=== PATIENT | male | born 1985 | race Caucasian/White ===

== ENCOUNTER 2023-03-21 09:01 | Emergency (ER) | payer OTHER, SELFPAY ==
[2023-03-21 09:10] VITALS: BP 128/88; PULSE 102; O2SAT 95
[2023-03-21 09:15] VITALS: BP 116/77; PULSE 100; RESP 18; TEMP 37.4; O2SAT 95; BMI 39.1
[2023-03-21 09:42] VITALS: BP 126/76; PULSE 92
[2023-03-21 09:46] VITALS: BP 114/73; PULSE 104
[2023-03-21 09:49] VITALS: BP 116/70; PULSE 98
--- NOTE | 2023-03-21 10:02 | ED_ITS ---
HPI - General Adult General Chief complaint: Upper Respiratory Symptoms Stated complaint: DIZZY,?SINUS INFECTION PER EMS Time Seen by Provider: 03/21/23 09:39 Source: patient Mode of arrival: ambulatory Limitations: no limitations History of Present Illness HPI narrative: Patient is a 37-year-old male presenting to the emergency department with complaint of sinus pain and pressure for the past week. States this morning he developed intermittent dizziness upon waking, states dizziness occurs when getting up from laying. He denies any sore throat, cough. Denies fevers. Does report right ear pain with some muffled hearing. He denies any chest pain, palpitations or shortness of breath. He denies headache or any vision changes. Denies any recent falls or other trauma. He denies any loss of consciousness. He has not used any [id number] medications for his symptoms. MD complaint: Sinus pain, dizziness Onset (ago): week(s) Location: face Radiation: other (Right ear) Severity: severe Quality: aching Pain Consistency: constant Relieving factors: none Exacerbating factors: movement Associated symptoms: other (Intermittent dizziness since this morning) Treatments prior to arrival: none Related Data Previous Rx's Medication Instructions Recorded amoxicillin 875 mg-potassium 1 tab PO BID #14 tabs 03/21/23 clavulanate 125 mg tablet Allergies Allergy/AdvReac Type Severity Reaction Status Date / Time No Known Allergies Allergy Verified 03/21/23 09:14 Review of Systems Review of Systems: As per HPI. Yes all other systems are reviewed and are negative Constitutional: Constitutional: Reports as per HPI Physical Exam ED Vital Signs: Vital Signs - 24 hr 03/21/23 09:15 03/21/23 09:42 03/21/23 09:46 Temperature 99.4 F Pulse Rate 100 92 104 H Respiratory Rate 18 Blood Pressure 116/77 126/76 114/73 Pulse Oximetry 95 Oxygen Delivery Method Room Air 03/21/23 09:49 Temperature Pulse Rate 98 Respiratory Rate Blood Pressure 116/70 Pulse Oximetry Oxygen Delivery Method BMI result Body Mass Index 39.1 Vital signs have been reviewed and appear to be correct. Blood pressure normal. Heart rate normal. Respiratory rate normal. Temperature normal. Oxygen saturation normal. Const General: cooperative, healthy appearing and no acute distress Orientation/consciousness: oriented to person, oriented to place, oriented to time and patient oriented x3 Limitations: no limitations HENMT Head: Yes normocephalic and Yes atraumatic Ears: hearing grossly normal bilaterally, external ears normal, TM's normal bilaterally, mastoids normal bilaterally, no periauricular adenopathy and Abnormal EAC present excessive cerumen bilateral General nose exam: Normal external nose present, Normal nares present, Normal nasal mucous membranes and turbinates present and Normal septum present Face and sinus: Yes face symmetric and Yes sinus tenderness (bilateral maxillary, ethmoid) Mouth: Normal oral and palatal mucosa present, oropharynx normal and moist mucous membranes Throat: Yes posterior oropharynx normal, Yes tonsils normal, Yes uvula midline and No uvular edema Eyes General: appearance normal, both eyes and all related structures Visual Davis: normal visual davis by confrontation Pupils: Equal, round and reactive pupils present EOM: EOMs intact bilaterally and No Nystagmus present Neck Neck: Yes normal visual inspection, Yes no meningeal signs and Yes supple Resp Effort & Inspection: normal respiratory effort and able to speak in complete s entences Auscultation: clear to auscultation bilaterally Cardio Rate: regular rate Rhythm: regular rhythm Heart sounds: S1 normal heart sound present and S2 normal heart sound present GI Palpation (GI): Soft to palpation and nontender Auscultation: normoactive bowel sounds General: Yes no CVA tenderness Back/Spine/Pelvis Back: no CVA tenderness Skin General skin exam: elasticity normal and turgor normal Neuro General: oriented to person, oriented to place, oriented to time, patient oriented x3, gait normal, tone normal, moves all extremities, Normal light touch and pain sensation, no meningeal signs, no focal motor deficits, CN's II-XI intact bilaterally and deep tendon reflexes 2+ bilaterally Cranial nerves: Yes Equal, round and reactive pupils present and No Nystagmus pr esent Cognition (Neuro): normal cognition Motor exam (neuro): 5/5 motor strength present throughout, Pronator motor function not present, Normal motor muscle tone present throughout and Motor abnormalities not present Sensory Exam: Normal double simultaneous stimulation for sensation Coordination: [id number] test normal, [id number] test normal and Romberg test negative Extrem General: Yes full ROM, Yes no pedal edema and Yes no calf tenderness Psych Mental Status: mental status grossly normal Affect: normal affect Thought process: Normal thought process present Medical Decision Making Medical Decision Making MDM Narrative: Patient is a 37-year-old male presenting to the emergency department with complaint of sinus pain and pressure for the past week. On exam patient is awake, A+Ox3, VS WNL, afebrile, normal neurological exam without focal deficits, bilateral maxillary and ethmoid sinus tenderness, no nystagmus, excessive cerumen to the EACs bilaterally, TMs normal, no mastoid tenderness, posterior oropharynx normal, lungs clear throughout, ambulating with steady gait. Given reported symptoms and physical exam findings, initial differential includes sinusitis, viral infection, BPPV, eustachian dysfunction. Do not suspect central cause of vertigo, do not suspect ICH, SAH, posterior stroke. Patient is not orthostatic. Will treat acute sinusitis with augmentin BID x 7 days. Advised patient to begin using nasal saline spray several times daily. Tylenol and ibuprofen as needed for discomfort. Instructed patient to follow with PCP. Return precautions discussed at bedside. Patient verbalized understanding of and agreement with plan. Differential Diagnosis Differential Diagnoses: The differential diagnosis associated with the presentation includes As per MDM. External Record Review External record reviewed: Inpatient record, Office record and Outpatient record Prescription Management I considered prescription management with: Antibiotic Discharge Plan Discharge Clinical Impression: Sinusitis Qualifiers: Sinusitis location: maxillary Chronicity: acute Recurrence: non-recurrent Qualified Code(s): J01.00 - Acute maxillary sinusitis, unspecified Patient Disposition: Home, Self-Care Instructions: Rhinosinusitis (DC) Additional Instructions: You are being prescribed antibiotics for your sinus infection. Please complete the full course of antibiotics as prescribed. You can also use [id number] nasal saline spray several times daily. Please follow-up with your primary care provider this week. Return to the emergency department for worsening pain, persistent dizziness, fevers 100.4? F or greater, shortness of breath, chest pain, or any other concerning symptoms. Prescriptions: New amoxicillin-pot clavulanate 875-125 mg tablet 1 tab PO BID Qty: 14 0RF
== END 2023-03-21 10:25 | disposition home or self-care (01) ==
PROVIDERS: Emergency Provider Emergency Medicine
DX: J01.00 Acute maxillary sinusitis, unspecified (principal)
CPT/HCPCS: 99282; 99283